=== PATIENT | male | born 1950 | race Caucasian/White ===

== ENCOUNTER → 2017-03-05 | Outpatient (CLI) | payer MEDICARE, BC ==
[~2017-03-05] MED LIST: BENICAR5 MG PO; CARDURA4 MG PO; CLINDAMAX2% VG; DESYREL DIVIDO150 M1 PO; GLUCOPHAGE1000 MG PO; HALCION0.25 MG PO; INDERAL60 MG PO; LEVEMIR100 U/ML SC; MELATONIN5 M1 PO; METROCREAM CREA45 GM TP; MYRBETR50MG PO; NIZORAL SHAMPO120 M1 TP; PAXIL40 MG PO; PRAVACHOL10 MG PO; VITAMIN B121000 MCG PO; VITAMIN D1000 IU PO
== END ==
LOC: BHSO 08:47
DX: F33.42 Major depressive disorder, recurrent, in full remission (principal)

== ENCOUNTER → 2017-04-23 | Outpatient (CLI) | payer MEDICARE, BC | LOC: COL.RAD 04-22 10:30 | DX: Z13.6 Encounter for screening for cardiovascular disorders (principal); I77.89 Other specified disorders of arteries and arterioles; Z87.891 Personal history of nicotine dependence ==

== ENCOUNTER → 2017-08-18 | Outpatient (CLI) | payer MEDICARE, BC | LOC: BHSO 09:57 | DX: F41.1 Generalized anxiety disorder (principal) ==

== ENCOUNTER → 2017-12-03 | Outpatient (CLI) | payer MEDICARE, BC | LOC: BHSO 09:56 | DX: F41.1 Generalized anxiety disorder (principal) | CPT/HCPCS: G0463 ==

== ENCOUNTER → 2018-01-13 | Outpatient (CLI) | payer MEDICARE, BC ==
[2018-01-13] VITALS (14 sets, daily range): BP systolic 110–133; BP diastolic 49–75; PULSE 58–73
[~2018-01-13] VITALS: Ht 177.8 cm; Wt 78.5 kg
[~2018-01-13] MED LIST changes: +CALCIUM CITRATE1 TA4 PO; +CONCERTA54 MG PO; +DESYREL 50MG50 MG PO; +LAMICTAL 100MG100 MG PO; +LEXAPRO 10MG10 MG PO; +MULTI VITAMINS1 TAB PO; +MYSOLINE 5050 MG/TAB PO; +VITAMIN B-1000 MCG/T PO
== END ==
LOC: COL.RAD 06:30
DX: N28.1 Cyst of kidney, acquired (principal); N40.1 Benign prostatic hyperplasia with lower urinary tract symptoms; R39.12 Poor urinary stream; K40.91 Unilateral inguinal hernia, without obstruction or gangrene, recurrent; Z87.891 Personal history of nicotine dependence; Z98.890 Other specified postprocedural states
CPT/HCPCS: 27584

== ENCOUNTER 2018-01-26 11:31 | Day surgery (SDC) | payer MEDICARE, BC ==
[2018-01-26] VITALS (8 sets, daily range): BP systolic 115–137; BP diastolic 50–76; PULSE 55–64; TEMP 97.6–98.3
[~2018-01-26] VITALS: Ht 177.8 cm; Wt 74.4 kg
[2018-01-26] MEDS ORDERED: NORCO 325 MG-51 TAB PO (15:08)
[2018-01-26] MEDS ORDERED: COLACE 100100 MG/CAP PO (15:08)
[2018-01-26] MEDS ORDERED: PYRIDIUM 100MG100 MG PO (15:09)
== END 2018-01-26 16:04 | disposition home or self-care (01) ==
LOC: SDCO 11:31
DX: N28.1 Cyst of kidney, acquired (principal); F32.9 Major depressive disorder, single episode, unspecified; E11.9 Type 2 diabetes mellitus without complications; E78.00 Pure hypercholesterolemia, unspecified; Z87.891 Personal history of nicotine dependence; G47.00 Insomnia, unspecified; G25.0 Essential tremor; M54.5 Low back pain; N40.0 Benign prostatic hyperplasia without lower urinary tract symptoms
CPT/HCPCS: C1769; J0690; J1100; J2300; J2405; J2704; J3010; J7120; Q9967

== ENCOUNTER → 2018-04-07 | Outpatient (CLI) | payer MEDICARE, BC ==
[~2018-04-07] MED LIST changes: +COLACE 100100 MG/CAP PO; +NORCO 325 MG-51 TAB PO; +PYRIDIUM 100MG100 MG PO
== END ==
LOC: BHSO 09:14
DX: F90.0 Attention-deficit hyperactivity disorder, predominantly inattentive type (principal)
CPT/HCPCS: G0463

== ENCOUNTER 2018-04-28 05:30 | Day surgery (SDC) | payer MEDICARE, BC ==
[2018-04-28] VITALS (11 sets, daily range): BP systolic 103–129; BP diastolic 50–66; PULSE 62–90; TEMP 97.6–98.3
[~2018-04-28] VITALS: Ht 177.8 cm; Wt 74.1 kg
[2018-04-28] MEDS ORDERED: B-121000 MCG PO (07:05)
[2018-04-29 00:23] VITALS: BP 111/56; PULSE 64; TEMP 98.2
[2018-04-29 04:03] VITALS: BP 110/55; PULSE 70; TEMP 98.1
[2018-04-29 08:50] VITALS: BP 108/57; PULSE 68; TEMP 98.4
== END 2018-04-29 12:35 | disposition home or self-care (01) ==
LOC: SDCO 05:30 → COL.LAB 07:30 → SDCO 07:30 → SURG 11:15 → SDCO 04-29 12:35
DX: K40.90 Unilateral inguinal hernia, without obstruction or gangrene, not specified as recurrent (principal); N28.1 Cyst of kidney, acquired; E11.9 Type 2 diabetes mellitus without complications; Z79.84 Long term (current) use of oral hypoglycemic drugs; E78.00 Pure hypercholesterolemia, unspecified; Z98.84 Bariatric surgery status; Z79.899 Other long term (current) drug therapy
CPT/HCPCS: OP; A4314; A9284; C1781; J0690; J1100; J1650; J1885; J2175; J2270; J2405; J2704; J2710; J3010; J7040; J7120

== ENCOUNTER → 2018-11-04 | Outpatient (CLI) | payer MEDICARE, BC ==
[~2018-11-04] MED LIST changes: +B-121000 MCG PO
== END ==
LOC: BHSO 15:43
DX: F90.0 Attention-deficit hyperactivity disorder, predominantly inattentive type (principal)
CPT/HCPCS: G0463

== ENCOUNTER → 2018-11-23 | Outpatient (CLI) | payer MEDICARE, BC | LOC: COL.RAD 14:56 | DX: N28.1 Cyst of kidney, acquired (principal); Z98.84 Bariatric surgery status ==

== ENCOUNTER → 2018-11-30 | Outpatient (CLI) | payer MEDICARE, BC | LOC: COL.RAD 11:54 | DX: R10.11 Right upper quadrant pain (principal) | CPT/HCPCS: A9537 ==

== ENCOUNTER → 2019-04-28 | Outpatient (CLI) | payer MEDICARE, BC | LOC: BHSO 15:46 | DX: F33.42 Major depressive disorder, recurrent, in full remission (principal) | CPT/HCPCS: G0463 ==

== ENCOUNTER → 2019-09-22 | Outpatient (CLI) | payer MEDICARE, BC | LOC: COL.RAD 13:01 | DX: N28.1 Cyst of kidney, acquired (principal); R33.9 Retention of urine, unspecified ==

== ENCOUNTER → 2019-10-13 | Outpatient (CLI) | payer MEDICARE, BC | LOC: BHSO 15:58 | DX: F90.0 Attention-deficit hyperactivity disorder, predominantly inattentive type (principal) | CPT/HCPCS: G0463 ==

== ENCOUNTER → 2020-04-09 | Outpatient (CLI) | payer MEDICARE, BC | LOC: BHSO 14:42 | DX: F33.41 Major depressive disorder, recurrent, in partial remission (principal) | CPT/HCPCS: G0463 ==

== ENCOUNTER → 2020-07-06 | Outpatient (CLI) | payer MEDICARE, BC | LOC: BHSO 16:17 | DX: F90.0 Attention-deficit hyperactivity disorder, predominantly inattentive type (principal) | CPT/HCPCS: G0463 ==

== ENCOUNTER → 2020-09-04 | Outpatient (CLI) | payer MEDICARE, BC | LOC: BHSO 15:55 | DX: F33.41 Major depressive disorder, recurrent, in partial remission (principal) | CPT/HCPCS: G0463 ==